=== PATIENT | female | born 1995 | race African-American/Black ===

== ENCOUNTER 2020-02-04 09:09 | Emergency (ER) | payer OTHER ==
[2020-02-04] MEDS ORDERED: ONDANSETRON 4 MG TAB.RAPDIS PO ONE (09:28)
--- NOTE | 2020-02-04 09:30 | ER Document Report ---
ED GI/ - General Chief Complaint: Nausea/Vomiting Stated Complaint: NAUSEA/VOMITING Notes: CHIEF COMPLAINT: Nausea vomiting for 1 day HPI: 24-year-old female presenting to the emergency department complaining of 4 to 5 episodes of vomiting in the last 24 hours. Denies abdominal pain denies dysuria denies fever. No diarrhea. States nausea is worse with eating. ROS: See HPI - all other systems were reviewed and are otherwise negative Constitutional: no fever Eyes: no drainage, no blurred vision ENT: no runny nose, no sore throat Cardiovascular: no chest pain Resp: no SOB, no cough GI: + vomiting, no diarrhea, no abdominal pain : no dysuria Integumentary: no rash Allergy: no hives Musculoskeletal: no extremity pain or swelling Neurological: no numbness/tingling, no weakness MEDICATIONS: I agree with the patient medications as charted by the RN. ALLERGIES: I agree with the allergies as charted by the RN. PAST MEDICAL HISTORY/PAST SURGICAL HISTORY: Reviewed and agree as charted by RN. SOCIAL HISTORY: Reviewed and agree as charted by RN. FAMILY HISTORY: No significant familial comorbid conditions directly related to patient complaint EXAM: Reviewed vital signs as charted by RN. CONSTITUTIONAL: Alert and oriented and responds appropriately to questions. Well-appearing; well-nourished HEAD: Normocephalic; atraumatic EYES: PERRL; Conjunctivae clear, sclerae non-icteric ENT: normal nose; no rhinorrhea; moist mucous membranes; pharynx without lesions noted, no uvula edema or deviation, no tonsillar hypertrophy, phonation normal NECK: Supple without meningismus; non-tender; no cervical lymphadenopathy, no masses CARD: RRR; no murmurs, no clicks, no rubs, no gallops; symmetric distal pulses RESP: Normal chest excursion without splinting or tachypnea; breath sounds clear and equal bilaterally; no wheezes, no rhonchi, no rales, pulse oximetry 100% on room air not hypoxic ABD/GI: Normal bowel sounds; non-distended; soft, non-tender, no rebound, no guarding; no palpable organomegaly or masses. BACK: The back appears normal and is non-tender to palpation, there is no CVA tenderness EXT: Normal ROM in all joints; non-tender to palpation; no cyanosis, no effusions, no edema SKIN: Normal color for age and race; warm; dry; good turgor; no acute lesions noted NEURO: Moves all extremities equally; Motor and sensory function intact PSYCH: The patient's mood and manner are appropriate. Grooming and personal hygiene are appropriate. MDM: 24-year-old female who does not believe she is with only history of PCOS presenting for vomiting that began yesterday. Has no abdominal pain on exam. Will give Zofran, check urinalysis urine . - Related Data Allergies/Adverse Reactions: seafood Allergy (Uncoded 02/04/20 09:44) oatmeal Adverse Reaction (Uncoded 02/04/20 09:44) Past Medical History - Social History Smoking Status: Unknown if Ever Smoked Family History: Reviewed & Not Pertinent Physical Exam - Vital signs Vitals: Temp Pulse Resp BP Pulse Ox 98.5 F 78 16 116/65 99 02/04/20 09:22 02/04/20 09:22 02/04/20 09:22 02/04/20 09:22 02/04/20 09:22 Course - Re-evaluation Re-evalutation: 02/04/20 10:56 Tolerating oral fluids will discharge home. Return instructions. - Vital Signs Vital signs: Temp Pulse Resp BP Pulse Ox 98.5 F 78 16 116/65 99 02/04/20 09:22 02/04/20 09:22 02/04/20 09:22 02/04/20 09:22 02/04/20 09:22 - Laboratory Laboratory results interpreted by me: 02/04/20 09:33 Urine Urobilinogen 2.0 H Discharge - Discharge Clinical Impression: Vomiting Qualifiers: Vomiting type: unspecified Vomiting Intractability: non-intractable Nausea presence: with nausea Qualified Code(s): R11.2 - Nausea with vomiting, unspecified Condition: Stable Disposition: HOME, SELF-CARE Additional Instructions: Take Zofran for any recurrent nausea or vomiting continue to push fluids at home. Urine did not show evidence of infection. If you develop abdominal pain or fever greater than 101 return for reevaluation. If you continue to vomit despite medication return for reevaluation Prescriptions: Ondansetron [Zofran Odt 4 mg Tablet] 1 - 2 tab PO Q4H PRN #15 tab.rapdis PRN Reason: For Nausea/Vomiting Referrals: DIANELYS SOLIMAN MD [ACTIVE STAFF] - Follow up as needed
[2020-02-04 10:19] LABS: APPEARANCE,URINE SLIGHTLY-CLOUDY; BILIRUBIN,URINE NEGATIVE (NEGATIVE); COLOR,URINE YELLOW; GLUCOSE, URINE NEGATIVE (NEGATIVE); KETONES,URINE NEGATIVE (NEGATIVE); LEUKOCYTE ESTERASE,URINE NEGATIVE (NEGATIVE); NITRITE,URINE NEGATIVE (NEGATIVE); PROTEIN,URINE NEGATIVE (NEGATIVE); URINE SPECIFIC GRAVITY 1.021
[2020-02-04 11:24] VITALS: BP 120/82
== END 2020-02-04 11:23 | disposition home or self-care (01) ==
LOC: ER 09:09
DX: R11.2 Nausea with vomiting, unspecified (principal)
CPT/HCPCS: 99283; 81025; 81001; S0119